=== PATIENT | male | born 1965 | race Caucasian/White ===

== ENCOUNTER 2016-08-11 07:15 | Emergency (ER) | payer OTHER, BC ==
--- NOTE | 2016-08-14 15:40 | ER ---
ADMIT: 08/11/2016 RM/LOC: ER [facility] MR#: [id number] [address] [id number] BRANDYNJUAN DIEGO FRAGA [address] [place] [address] Emergency Room Report SEX: M AGE: 51 : 1965 DATE: 08/11/2016 ADDENDUM: A 51-year-old male, evidently had injured himself at work, he fell. He has left shoulder discomfort and he said he said he got his ribs over there hurt. X-ray of left shoulder and ribs are negative. We put him on light duty for a week. He can take Motrin over the counter. Ice, follow up as needed. Gabe Flowers MD/ shreya JOB #: [id number] CC: Gabe Flowers MD, Attending Physician Darío Stanton MD, Family Physician
== END 2016-08-11 09:50 | disposition home or self-care (01) ==
LOC: ER 07:15
DX: S46.812A Strain of other muscles, fascia and tendons at shoulder and upper arm level, left arm, initial encounter (principal); S20.212A Contusion of left front wall of thorax, initial encounter; E11.9 Type 2 diabetes mellitus without complications; Z88.0 Allergy status to penicillin; Z79.4 Long term (current) use of insulin; Y92.009 Unspecified place in unspecified non-institutional (private) residence as the place of occurrence of the external cause; W22.8XXA Striking against or struck by other objects, initial encounter